=== PATIENT | female | born 1965 | race African-American/Black ===

== ENCOUNTER 2017-12-10 08:30 | Emergency (ER) | payer MEDICAID ==
[~2017-12-10] VITALS: Ht 167.6 cm; Wt 129.0 kg
[2017-12-10 08:36] VITALS: BP 186/81
== END 2017-12-10 14:33 | disposition left against medical advice (07) ==
LOC: ER 08:30
DX: R42 Dizziness and giddiness (principal); Z53.21 Procedure and treatment not carried out due to patient leaving prior to being seen by health care provider

== ENCOUNTER 2018-07-22 14:42 | Emergency (ER) | payer MEDICAID ==
[~2018-07-22] VITALS: Ht 170.2 cm; Wt 100.0 kg
[2018-07-22] MEDS ORDERED: ACETAMINOPHEN 650MG/20.3ML UDC PO ONE (18:30)
[2018-07-22] MEDS ORDERED: DIAZEPAM 5 MG TABLET PO ONE (18:45)
[2018-07-22 20:14] VITALS: BP 120/71
== END 2018-07-22 20:14 | disposition home or self-care (01) ==
LOC: ER 14:42
DX: S39.012A Strain of muscle, fascia and tendon of lower back, initial encounter (principal); I10 Essential (primary) hypertension; V89.2XXA Person injured in unspecified motor-vehicle accident, traffic, initial encounter; Y93.89 Activity, other specified; Y92.89 Other specified places as the place of occurrence of the external cause; Y99.8 Other external cause status
CPT/HCPCS: 72131; 99284